=== PATIENT | female | born 1995 | race Caucasian/White ===

== ENCOUNTER 2019-11-18 13:07 | Inpatient (IN) ==
[2019-11-18] MEDS ORDERED: INFLUENZA ADMINISTRATION CHARGE ONE (13:55)
[2019-11-18] MEDS ORDERED: INFLUENZA VIRUS QUAD VACCINE 0.5 ML SYR IM ONE (13:55)
[2019-11-18] MEDS ORDERED: OXYTOCIN 30 UNITS/500 ML BAG IV PRN ×2 (14:19→18:36)
[2019-11-18] MEDS: LACTATED RINGER'S 1,000 ML IV PRN ×3 (14:20→20:31)
[2019-11-18 14:43] LABS: Hematocrit (blood only) 37.1 % (37-47); Hemoglobin 12.6 g/dL (12.0-16.0); Mean Corpuscular Hemoglobin 29.2 pg (25-34); Mean Corpuscular Volume 85.9 fL (80-100); Mean Platelet Volume 10.6 fL (7.4-10.4); Platelet Count 233 K/uL (130-400); RDW Coefficient of Variation 13.9 % (11.5-14.5); RDW Standard Deviation 43.2 fL (36.4-46.3); Red Blood Count 4.32 M/uL (4.2-5.4); White Blood Count 15.39 K/uL (4.8-10.8)
[2019-11-18] MEDS ORDERED: BUPIVACAINE 0.25% 30 ML VIAL ONE (15:00)
[2019-11-18] MEDS ORDERED: ePHEDrine sulfate 50 MG/ML AMP ONE (15:00)
[2019-11-18] MEDS ORDERED: fentaNYL citrate 100 MCG/2 ML VIAL ONE (15:01)
[2019-11-18] MEDS ORDERED: fentaNYL 2MCG/ML ROPIV 1.25MG/ML 100 ML BAG EPI ONE (15:01)
--- NOTE | 2019-11-18 15:01 | History & Physical Report ---
Date of Service November 18, 2019 Assessment & Plan (1) Encounter for induction of labor: Martha García is a 24 year old at 40+3wga with velamentous cord insertion who presents to L&D for elective IOL. -induction with pitocin -LR 125mL/hr IV q8h prn -AROM when indicated -close clinical and monitoring given velamentous cord insertion -anticipate History of Present Illness Primary Care Provider: Kevin Stanton Martha García is a 24 year old at 40+3wga with velamentous cord insertion who presents to L&D for elective IOL. She was seen in the office today for a routine check-up and was found to be 4cm dilated and 100% effaced. On her way home, she began to have increasingly frequent contractions and called the office, and was instructed to come to L&D. Here, she was found to have a category II FHT with variable decelerations, and the decision was made to induce labor today instead of tomorrow. Martha reports abdominal pain and cramping with contractions, and no pain or symptoms between contractions. She denies fever, chills, headache, SOB, cough, wheezing, chest pain, palpitations, dysuria, or loss of fluid. She does note some spotting yesterday after her cervix was checked in office. She has had growth scans q4 weeks starting at 28 weeks and NST's at 36 weeks for her velamentous cord insertion. Labs: A pos/antibody neg/rubella immune/hep b neg/hiv neg/GC neg/RPR NR/2 hour gtt 85/GBS neg/COVID neg (11/12/2019) Allergies Allergy/AdvReac Type Severity Reaction Status Date / Time Sulfa (Sulfonamide Allergy hives Verified 11/18/19 09:04 Antibiotics) Home Medications Home Medications Medication Instructions Recorded Confirmed Type prenat.vits,anne,qel-gkpn-syffw 1 tab PO DAILY 11/11/19 11/18/19 History [ Vitamin] Past Med/Surg History Medical History Encounter for anatomic survey Hx of migraines Prior miscarriage with , antepartum Supervision of with history of infertility Varicella vaccination Family History Father Brain tumor Social History Smoking Status: Never smoker Hx Alcohol Use: No Hx Substance Use: No Preferred Language: Hungarian Communication Ability: Effective 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 Beliefs That Will Affect Care: None marital status: marital status details: Jonathan García (37) [phone] Current Living Situation: Spouse Current Living Situation Comment: lives with spouse, dog, cat-spouse changing litter current occupational status: employed 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 Feels Safe at Home: Yes Safety Concerns: Feels Safe At This Time Review of Systems Constitutional: no fever and no chills Respiratory: no cough and no dyspnea Cardiovascular: no chest pain, no palpitations and no edema Gastrointestinal: no nausea, no vomiting and no constipation Genitourinary: no dysuria Musculoskeletal: denies calf pain Neurologic: no tingling and no numbness Physical Exam Constitutional: well nourished; no acute distress and not ill appearing Respiratory: normal respiratory effort, lungs clear to auscultation Cardiovascular: RRR, no murmur, no edema Gastrointestinal (Abdomen): normal gravid abdomen, soft, nontender to palpation, bowel sounds present in all four quadrants, Musculoskeletal: no calf tenderness bilaterally, negative Gunner's sign bilaterally Genitourinary: Manual OB Exam: + cervical dilation 5 cm, + cervical effacement 100% and + station 0 OB Exam Monitor Tracing: + external FHT monitor used, + external uterine monitor used, + category II, + normal FHT variability and + variable decelerations isolated FHT: category II 2/2 variable decelerations prior to maternal repositioning Cowan: q2-4min Results & Data Results & Data ([facility]) Vital Signs (Past 12 Hours) Vital Signs Temp Pulse Resp BP 11/18/19 14:34 18 11/18/19 14:00 37.0 C 18 11/18/19 13:30 37 C 93 H 18 110/68 11/18/19 13:25 93 H 110/68 Supervising Physician Co-Signing Physician Notes Resident Physician Supervision Note: I interviewed and examined the patient. Discussed with Dr. Mercado and agree with findings and plan as documented in the note. Any exceptions or clarifications are listed here: [None] Documented By: Aury Baer MD, FACOG Resident Activity Tracking Resident Involvement: Resident Care Provided Care Provided: OB Delivery
[2019-11-18] MEDS ORDERED: fentaNYL 2MCG/ML ROPIV 1.25MG/ML 100 ML BAG EPI PRN (15:56)
[2019-11-18] MEDS ORDERED: NALOXONE HCL 1 MG in SODIUM CHLORIDE 0.9% 1000ML 1,000 ML IV PRN (15:56)
[2019-11-18] MEDS ORDERED: ONDANSETRON INJ 2 MG/ML 2 ML VIAL IV PRN (15:56)
[2019-11-18] MEDS ORDERED: NALOXONE HCL 0.4 MG/1 ML VIAL/CARP IV PRN (15:56)
[2019-11-18] MEDS ORDERED: DiphenhydrAMINE HCL 50 MG/ML VIAL IV PRN (15:56)
[2019-11-18] MEDS ORDERED: ePHEDrine sulfate 50 MG/ML AMP IV PRN (15:56)
[2019-11-18] MEDS ORDERED: PROMETHAZINE HCL 25 MG in SODIUM CHLORIDE 0.9% 50 ML IV PRN (15:56)
--- NOTE | 2019-11-18 15:56 | Anesthesiology Consultation ---
Date of Service November 18, 2019 Assessment & Plan ASA ASA3 Proposed Anesthesia Anesthesia Type: Labor Epidural Risk / Benefits Reviewed With: PT / POA / Parent / Guardian, Accepts Plan and Informed Consent Obtained History Height/Weight Height: 5 ft 2 in Weight: 70.307 kg Allergies Allergy/AdvReac Type Severity Reaction Status Date / Time Sulfa (Sulfonamide Allergy hives Verified 11/18/19 09:04 Antibiotics) Medications Home Medications Medication Instructions Recorded Confirmed Last Taken prenat.vits,anne,aet-lfqz-wztaj 1 tab PO DAILY 11/11/19 11/18/19 11/10/19 21:00 [ Vitamin] Active Medications Generic Name Dose Route Start Last Admin Trade Name Freq PRN Reason Stop Dose Admin Lactated Ringer's 1,000 mls @ 125 mls/hr 11/18/19 14:19 11/18/19 15:56 Lr IV 11/20/19 14:18 999 mls/hr .Q8H PRN Administration L&D Protocol Protocol Past Medical History Medical History Encounter for anatomic survey Hx of migraines Prior miscarriage with , antepartum Supervision of with history of infertility Varicella vaccination Exercise / Class Metabolic Activity II 4-5 Yardwork/Stairs/Walk up hill Past Family History Family History Father Brain tumor Past Anesthesia History No Hx of Anesthesia Complications and No Family Hx of Anesthesia Complications History of PONV No Hx of PONV and No Hx of Motion Sickness Social History Smoking Status: Never smoker Hx Alcohol Use: No Hx Substance Use: No Review of Systems denies fever/cough/ colds/ chest pain/ SOB/ RON Constitutional: no fever and no chills Respiratory: no cough and no dyspnea denies RON Cardiovascular: no chest pain and no dyspnea on exertion Physical Exam Vital Signs Last Vital Signs Temp 37.0 C 11/18/19 14:00 Pulse 106 H 11/18/19 15:55 Resp 18 11/18/19 14:53 BP 123/71 11/18/19 15:55 Pulse Ox 100 11/18/19 15:51 ENMT Mouth: no TMJ abnormality and no dentition abnormality Thyromental Distance: > or= 3.5 Finger Breadths Mallampati Class: II Neck neck extension not limited Respiratory normal respiratory effort; no respiratory distress Auscultation: lungs clear to auscultation bilaterally Cardiovascular Rate/Rhythm: regular rate and regular rhythm Neurologic moves all extremities Psychiatric Orientation: alert and oriented x 3 Testing Laboratory Results 11/18/19 14:33
--- NOTE | 2019-11-18 18:36 | Obstetrical Progress Note ---
Date of Service November 18, 2019 Assessment & Plan Admission and Anticipated Discharge Date Admission Date: November 18, 2019 Subjective several variable decels now strip is category 1 with rare mild variables. epidural effective cervix exam- 6/100/0- AROM clear fluid may need pitocin augmentation if contraction pattern doesn't improve Results & Data ([facility]) Vital Signs (Past 12 Hours) Vital Signs Temp Pulse Resp BP Pulse Ox Pulse Ox 11/18/19 18:26 116 H 100 11/18/19 18:21 85 100 11/18/19 18:17 85 104/66 11/18/19 18:16 91 H 100 11/18/19 18:11 87 100 11/18/19 18:06 87 100 11/18/19 18:01 84 100 11/18/19 18:00 18 11/18/19 17:58 95 H 98/54 L 11/18/19 17:56 97 H 100 11/18/19 17:51 92 H 100 11/18/19 17:46 81 100 11/18/19 17:41 84 100 11/18/19 17:37 77 100/55 L 11/18/19 17:36 88 100 11/18/19 17:31 78 100 11/18/19 17:27 95 H 94 11/18/19 17:26 77 100 11/18/19 17:21 72 98 11/18/19 17:17 98 H 100/70 11/18/19 17:16 88 100 11/18/19 17:11 90 100 11/18/19 17:06 78 100 11/18/19 17:03 89 91 11/18/19 17:01 79 100 11/18/19 16:58 102 H 100/63 11/18/19 16:56 97 H 98 11/18/19 16:54 103 H 93 11/18/19 16:51 81 100 11/18/19 16:46 111 H 100 11/18/19 16:41 100 H 99 11/18/19 16:37 100 H 110/78 11/18/19 16:36 98 H 100 11/18/19 16:34 100 H 134/81 11/18/19 16:31 104 H 135/68 100 11/18/19 16:30 18 11/18/19 16:28 95 H 91/66 L 11/18/19 16:26 83 100 11/18/19 16:25 127 H 102/62 11/18/19 16:22 125 H 115/74 11/18/19 16:21 131 H 100 11/18/19 16:19 110 H 113/72 11/18/19 16:16 79 109/72 97 11/18/19 16:13 97 H 104/59 L 11/18/19 16:11 111 H 100 11/18/19 16:10 108 H 123/70 11/18/19 16:08 100 11/18/19 16:07 103 H 119/71 11/18/19 16:06 112 H 100 11/18/19 16:04 111 H 118/73 11/18/19 16:01 108 H 113/74 100 11/18/19 16:00 98.6 F 18 11/18/19 15:58 104 H 130/73 11/18/19 15:56 102 H 100 11/18/19 15:55 106 H 123/71 11/18/19 15:52 97 H 120/71 11/18/19 15:51 103 H 100 11/18/19 15:49 97 H 136/77 11/18/19 15:46 87 123/75 100 11/18/19 15:45 108 H 93 11/18/19 15:43 99 H 127/78 11/18/19 15:41 95 H 100 11/18/19 15:40 108 H 123/82 11/18/19 15:37 114 H 129/80 11/18/19 15:36 107 H 99 11/18/19 15:17 102 H 106/79 11/18/19 14:53 18 11/18/19 14:34 18 11/18/19 14:00 98.6 F 18 11/18/19 13:30 98.6 F 93 H 18 110/68 11/18/19 13:25 93 H 110/68 PG Care Time/CCT Total # of Minutes Spent Total Time Spent with Patient: Total time spent is greater than 50% in coordination of care (as documented) at patient's floor/unit and/or counseling patient: Coding Level of Care Code None
[2019-11-19] MEDS ORDERED: BENZOCAINE 20% AER SPR 82.5 GM CAN EXT PRN (02:36)
[2019-11-19] MEDS ORDERED: SUPERCREAM 0.870% 15 GM JAR EXT PRN (02:36)
[2019-11-19] MEDS ORDERED: bisacodyL 10 MG SUPP PR PRN (02:36)
[2019-11-19] MEDS ORDERED: IBUPROFEN 600 MG TAB PO PRN (02:36)
[2019-11-19] MEDS ORDERED: DIPHTHERIA/TETANUS/PERTUSSIS 0.5 ML SYR/VIAL IM ONE (02:36)
[2019-11-19] MEDS ORDERED: HYDROCORTISONE ACETATE 25 MG SUPP PR PRN (02:36)
[2019-11-19] MEDS ORDERED: OXYTOCIN 30 UNITS/500 ML BAG IV PRN (02:36)
[2019-11-19] MEDS ORDERED: ACETAMINOPHEN 325 MG TAB PO PRN (02:36)
[2019-11-19] MEDS ORDERED: OXYCODONE/ACETAMINOPHEN 5mg/325mg TAB PO PRN (02:36)
--- NOTE | 2019-11-19 02:48 | Delivery Summary ---
Vaginal Delivery Summary Date of Service November 19, 2019
--- NOTE | 2019-11-19 06:04 | Delivery Summary ---
DATE OF OPERATION: 11/19/2019 The patient is a 24-year-old G3, P0-0-2-0 white female who presented at 40+ weeks because of regular contractions. She was 5 cm and 100% effaced upon arrival in labor and delivery. She did have several prolonged variables. Contractions were approximately 8 cm apart. She does have a velamentous cord insertion as well complicating the . The patient received effective epidural analgesia. Membranes were ruptured for clear fluid. She required Pitocin augmentation of her labor at 7 cm. She then quickly went to full dilation. She pushed effectively over intact perineum for delivery of a viable male . There was a nuchal cord present. While trying to reduce the cord, the cord was inadvertently divided. The infant was then delivered immediately and the avulsed part of the cord was clamped with a Karime clamp. The infant was vigorous and moving all 4 limbs. The umbilical cord was noted to have no Cameron's jelly. After cord blood was obtained, the placenta was expressed intact with gentle traction on the cord. It was noted to have a velamentous insertion. A first-degree vaginal laceration and bilateral superficial labial lacerations were repaired with 3-0 chromic in the usual fashion. Estimated blood loss was 350 mL. bleeding was controlled with dilute Pitocin. Mother and were doing well after delivery. I attest to the content of the Intraoperative Record and any orders documented therein. Any exceptions are noted below. MTDD
--- NOTE | 2019-11-19 08:49 | Anesthesia Procedure Note ---
Date of Service November 19, 2019 Anesthesia Post Epidural Note Vital Signs Vital Signs: Temp Pulse Resp BP Pulse Ox 36.8 C 103 H 18 121/74 98 11/19/19 05:00 11/19/19 05:00 11/19/19 05:00 11/19/19 05:00 11/19/19 02:12 Pain Intensity Lower Abdomen: Pain Intensity: 0 Notes Mental Status: alert / awake / arousable and participated in evaluation Nausea / Vomiting: adequately controlled Pain: adequately controlled Airway Patency, RR, SpO2: stable & adequate BP & HR: stable & adequate Hydration State: stable & adequate Neuraxial Anesthesia: was administered and sensory block is resolving Anesthetic Complications: no major complications apparent and Pt Satisfied with anesthetic care Epidural: Removed without complications and With tip intact
[2019-11-19] MEDS: DOCUSATE SODIUM 100 MG CAP PO SCH ×2 (09:03→20:08)
[2019-11-19] MEDS: PRENATAL VITAMIN 1 TAB PO SCH (09:03)
[2019-11-20 06:14] LABS: Hematocrit (blood only) 32.2 % (37-47); Hemoglobin 10.9 g/dL (12.0-16.0); Mean Corpuscular Hemoglobin 29.5 pg (25-34); Mean Corpuscular Hgb Conc 33.9 g/dL (32-36); Mean Platelet Volume 10.7 fL (7.4-10.4); Platelet Count 192 K/uL (130-400); RDW Standard Deviation 44.4 fL (36.4-46.3); White Blood Count 15.25 K/uL (4.8-10.8)
--- NOTE | 2019-11-20 07:02 | Obstetrical Progress Note ---
Date of Service November 20, 2019 Assessment & Plan (1) Encounter for induction of labor: Recovering well after spontaneous labor and delivering occuring the night before planned induction was to occur. Will stay today, needing help with latch / . Subjective Ambulation: ambulating normally Voiding: no voiding problems Passing Gas:: Yes Diet Tolerance:: regular diet Lochia:: Small Physical Exam Constitutional WD/WN, vitals as above Eyes PERRL, conjunctivae normal, anicteric sclerae Neck normal visual inspection Respiratory normal respiratory effort and able to speak in complete sentences; no respiratory distress and no labored breathing Cardiovascular Rate/Rhythm: regular rate and regular rhythm Extremities: no edema Chest (Breasts) Chest: normal inspection of chest Gastrointestinal (Abdomen) Inspection/Auscultation: abdomen normal to inspection Soft, postgravid Psychiatric A+Ox3, euthymic affect Genitourinary OB Exam Abdomen: + fundal height Fundus: + firm and + relation to umbilicus (fundus just below umbilicus); not tender Results & Data ([facility]) Vital Signs (Past 12 Hours) Vital Signs Temp Pulse Resp BP 11/20/19 04:50 98.1 F 80 18 109/75 11/19/19 23:00 97.7 F 79 18 99/63 L 11/19/19 20:10 98.1 F 79 18 115/76
[2019-11-20] MEDS: PRENATAL VITAMIN 1 TAB PO SCH (09:19)
[2019-11-20] MEDS: DOCUSATE SODIUM 100 MG CAP PO SCH ×2 (09:19→20:50)
[2019-11-20] MEDS ORDERED: bisacodyL 5 MG TABEC PO SCH (20:00)
[2019-11-21 05:52] LABS: Hematocrit (blood only) 33.2 % (37-47); Hemoglobin 11.3 g/dL (12.0-16.0)
--- NOTE | 2019-11-21 06:59 | Obstetrical Progress Note ---
Date of Service November 21, 2019 Assessment & Plan (1) Encounter for care and examination after delivery: Post day 2 from [facility]. Doing well. Stable for discharge Subjective Ambulation: ambulating normally Voiding: no voiding problems Passing Gas:: Yes Diet Tolerance:: regular diet Lochia:: Moderate Physical Exam Constitutional WD/WN, vitals as above Respiratory normal respiratory effort; no respiratory distress and no labored breathing Gastrointestinal (Abdomen) Inspection/Auscultation: abdomen normal to inspection; abdomen not distended Percussion/Palpation: abdomen soft; abdomen nontender, no guarding and abdomen not rigid Genitourinary OB Exam Abdomen: + fundal height Fundus: + firm and + relation to umbilicus (Below); not tender and not boggy Results & Data ([facility]) Vital Signs (Past 12 Hours) Vital Signs Temp Pulse Resp BP Pulse Ox 11/20/19 23:30 36.3 C L 72 16 117/77 97 11/20/19 19:50 37.5 C 102 H 20 128/79 100
[2019-11-21] MEDS: PRENATAL VITAMIN 1 TAB PO SCH (08:08)
[2019-11-21] MEDS: DOCUSATE SODIUM 100 MG CAP PO SCH (08:08)
== END 2019-11-21 11:23 | disposition home or self-care (01) | DRG 807 ==
LOC: 4S1 13:07 → OPB 13:18 → 4S1 14:19 → 4S2 11-19 05:39

== ENCOUNTER 2021-03-28 05:42 | Inpatient (IN) ==
--- NOTE | 2021-03-28 08:25 | History & Physical Report ---
Date of Service March 28, 2021 Assessment & Plan (1) Encounter for induction of labor: Plan: 25 year old at 39 weeks coming in for induction of labor -Vital signs reviewed and within normal limits. -Started on LR and Pitocin. -Epidural if patient requests. -Continue to monitor vital signs, heart monitor, contractions. History of Present Illness Primary Care Provider: Kevin Stanton 25 year old 39 weeks confirmed via LMP. Here for possible induction. No complications with this . Patient attended OB appointments regularly. Patient taking vitamin at home. Contractions: q3min when walking around although do not last long. Fluid or blood: no fluid, mild blood tinge this morning. Movement: Present. Allergies Allergy/AdvReac Type Severity Reaction Status Date / Time Sulfa (Sulfonamide Allergy hives Verified 03/23/21 16:31 Antibiotics) Home Medications Medication Instructions Recorded Confirmed Type prenat.vits,anne,mzw-pycc-iezct 1 tab PO DAILY 11/11/19 03/28/21 History Patient History Medical History Encounter for anatomic survey Encounter for care and examination after delivery Hx of migraines Prior miscarriage with , antepartum Supervision of with history of infertility Varicella vaccination Velamentous insertion of umbilical cord, antepartum Surgical History History of repair of ACL Family History Father Brain tumor Denies family history of Ovarian cancer Prostate cancer Breast cancer Colorectal cancer Social History (Updated 08/18/20 @ 08:57 by Bhavana Ramirez RN) Smoking Status: Never smoker Second Hand Exposure: No; Hx Alcohol Use: No Hx Substance Use: No Preferred Language: Kazakh Communication Ability: Effective Visual Impairment: No Limitations Hearing Ability: Normal 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 Spontaneous 06/2018, elective 08/2018. Review of Systems Denies fever, chills, sweats Denies shortness of breath, difficulty breathing, chest pain, palpitations, chest pressure. Denies breast pain. Denies dysuria. Denies headache or changes in vision Physical Exam Physical Exam: General: Alert, oriented. No acute distress. Cardiac: Regular rate and rhythm, no murmurs/rubs/gallops. Respiratory: Clear to auscultation bilaterally a/p, no wheezes/rales/rhonchi. No increased work of breathing. Symmetrical chest rise. No respiratory distress. Pelvic: Dilation 1.0cm; Effacement 75; Station -[address] Casarez Lower Extremities: No lower extremity edema or swelling. No deep calf pain. H jean claude's negative bilaterally Baseline: 130 Variability: Moderate Accelerations:Present Decelerations: Not present Results & Data ([facility]) Vital Signs (Past 12 Hours) Vital Signs Temp Pulse Resp BP 03/28/21 06:57 86 100/67 03/28/21 06:56 36.8 C 18 03/28/21 06:07 36.7 C 18 03/28/21 05:58 92 H 114/68 Laboratory Results - Blood type A+ - Antibody screen: negative - Hgb: 12.0 - Hct: 36.3 - Wbc: 14.90 - Plt: 251 - Rubella Immune - VDRL/RPR: Non-reactive - Gonorrhea: Not reactive - Chlamydia: Not reactive - HIV: Negative - HbSAg: Negative - GBS: Negative - Glucose tolerance x 2: 120, 120 Supervising Physician Co-Signing Physician Notes Patient seen and evaluated and agree with the noted findings and plan Resident Activity Tracking Resident Involvement: Resident Care Provided Care Provided: OB Delivery
[2021-03-28] MEDS ORDERED: OXYTOCIN 30 UNITS/500 ML BAG IV PRN ×2 (08:39→17:27)
[2021-03-28] MEDS: LACTATED RINGER'S 1,000 ML IV PRN ×2 (08:59→10:29)
[2021-03-28 09:09] LABS: Hematocrit (blood only) 36.3 % (37-47); Mean Corpuscular Hemoglobin 28.1 pg (25-34); Mean Corpuscular Hgb Conc 33.1 g/dL (32-36); Platelet Count 251 K/uL (130-400); RDW Coefficient of Variation 14.4 % (11.5-14.5); RDW Standard Deviation 44.7 fL (36.4-46.3); Red Blood Count 4.27 M/uL (4.2-5.4)
[2021-03-28] MEDS ORDERED: ePHEDrine sulfate 50 MG/ML AMP ONE (09:39)
[2021-03-28] MEDS ORDERED: SODIUM CHLORIDE 0.9% INJ 10 ML VIAL ONE (09:39)
[2021-03-28] MEDS ORDERED: BUPIVACAINE 0.25% 30 ML VIAL ONE (09:39)
[2021-03-28] MEDS ORDERED: fentaNYL 2MCG/ML ROPIVACAINE 1.25MG/ML 100 ML BAG EPI ONE (09:40)
[2021-03-28] MEDS ORDERED: fentaNYL citrate 100 MCG/2 ML VIAL ONE (09:40)
--- NOTE | 2021-03-28 10:42 | Anesthesiology Consultation ---
Date of Service March 28, 2021 Assessment & Plan (1) Encounter for pre-operative examination: Chart Review Chart Review: Acceptable Risk for Labor Epidural History Height/Weight Height: 5 ft 2 in Weight: 70.307 kg Allergies Allergy/AdvReac Type Severity Reaction Status Date / Time Sulfa (Sulfonamide Allergy hives Verified 03/23/21 16:31 Antibiotics) Medications Home Medications Medication Instructions Recorded Confirmed Last Taken prenat.vits,anne,dry-vaoz-mahyw 1 tab PO DAILY 11/11/19 03/28/21 11/18/19 07:00 Active Medications Generic Name Dose Route Start Last Admin Trade Name Freq PRN Reason Stop Dose Admin Lactated Ringer's 1,000 mls @ 125 mls/hr 03/28/21 08:39 03/28/21 10:29 Lr IV 03/30/21 08:38 125 mls/hr .Q8H PRN Administration L&D Protocol Protocol Past Medical History Medical History Encounter for anatomic survey Encounter for care and examination after delivery Hx of migraines Prior miscarriage with , antepartum Supervision of with history of infertility Varicella vaccination Velamentous insertion of umbilical cord, antepartum Past Family History Family History Father Brain tumor Denies family history of Ovarian cancer Prostate cancer Breast cancer Colorectal cancer Past Surgical History Surgical History History of repair of ACL Social History Smoking Status: Never smoker Hx Alcohol Use: No Hx Substance Use: No Physical Exam Vital Signs Last Vital Signs Temp 36.8 C 03/28/21 06:56 Pulse 86 03/28/21 10:38 Resp 18 03/28/21 06:56 BP 110/60 03/28/21 09:33 Pulse Ox 98 03/28/21 10:38 Testing Laboratory Results 03/28/21 08:46
[2021-03-28] MEDS ORDERED: NALOXONE HCL 0.4 MG/1 ML VIAL/CARP IV PRN (11:08)
[2021-03-28] MEDS ORDERED: fentaNYL 2MCG/ML ROPIVACAINE 1.25MG/ML 100 ML BAG EPI PRN (11:08)
[2021-03-28] MEDS ORDERED: NALOXONE HCL 1 MG in SODIUM CHLORIDE 0.9% 1000ML 1,000 ML IV PRN (11:08)
[2021-03-28] MEDS ORDERED: ONDANSETRON INJ 2 MG/ML 2 ML VIAL IV PRN (11:08)
[2021-03-28] MEDS ORDERED: ePHEDrine sulfate 50 MG/ML AMP IV PRN (11:08)
--- NOTE | 2021-03-28 11:55 | Labor Progress Brief Note ---
Date of Service March 28, 2021 Subjective comfortable w/ epidural Assessment & Plan (1) : Plan: 25 y/o at 39 wga in labor VSS Fetus cat 1 Labor - now s/p arom, continue expectant management GBS neg epidural Weeks of gestation: 11 weeks Qualified Code(s): Z3A.11 - 11 weeks gestation of Admission and Anticipated Discharge Date Admission Date: March 28, 2021 Physical Exam Genitourinary: Manual OB Exam: + cervical dilation 4 cm, + cervical effacement 70%, + station -2 and + amniotic fluid (arom clear) OB Exam Monitor Tracing: + external FHT monitor used, + external uterine monitor used (q3-6) and + category I (130/mod/+accel/-decel) Results & Data ([facility]) Vital Signs (Past 12 Hours) Vital Signs Temp Pulse Resp BP Pulse Ox 03/28/21 11:49 90 117/65 03/28/21 11:48 94 H 98 03/28/21 11:45 18 03/28/21 11:44 92 H 131/73 03/28/21 11:43 95 H 99 03/28/21 11:39 96 H 120/92 03/28/21 11:38 93 H 98 03/28/21 11:34 92 H 132/66 03/28/21 11:33 96 H 99 03/28/21 11:30 97 H 20 105/70 03/28/21 11:28 94 H 98 03/28/21 11:24 96 H 105/65 03/28/21 11:23 96 H 99 03/28/21 11:19 93 H 105/58 L 03/28/21 11:18 91 H 98 03/28/21 11:15 113 H 18 115/60 03/28/21 11:13 94 H 98 03/28/21 11:11 93 H 107/63 03/28/21 11:10 18 03/28/21 11:09 98.2 F 96 H 105/62 03/28/21 11:08 96 H 97 03/28/21 11:07 96 H 104/67 03/28/21 11:05 88 108/66 03/28/21 11:03 91 H 107/68 97 03/28/21 10:58 104 H 98 03/28/21 10:53 109 H 98 03/28/21 10:48 108 H 98 03/28/21 10:43 86 100 03/28/21 10:38 86 98 03/28/21 10:33 92 H 98 03/28/21 10:28 98 H 98 03/28/21 10:23 98 H 99 03/28/21 10:18 95 H 99 03/28/21 10:13 106 H 99 03/28/21 10:07 96 H 100 03/28/21 10:02 97 H 100 03/28/21 09:57 91 H 100 03/28/21 09:52 89 99 03/28/21 09:47 95 H 98 03/28/21 09:42 88 98 03/28/21 09:33 93 H 110/60 03/28/21 06:57 86 100/67 03/28/21 06:56 98.2 F 03/28/21 06:07 98.1 F 03/28/21 05:58 92 H 114/68 Coding Level of Care Code None Diagnoses Z3A.11 Weeks of gestation: 11 weeks
--- NOTE | 2021-03-28 17:12 | Delivery Summary ---
Vaginal Delivery Summary Date of Service March 28, 2021 Vaginal Delivery Summary [facility] PREOPERATIVE DIAGNOSIS: 1. Single intrauterine at 39 weeks gestation 2. Labor POSTOPERATIVE DIAGNOSIS: 1. Single intrauterine at 39 weeks gestation 2. Labor 3. Delivered PROCEDURE: 1. Normal spontaneous vaginal delivery. SURGEON: Cristin He MD ANESTHESIA: Epidural. ESTIMATED BLOOD LOSS: 300 mL FLUIDS: Continuous LR. URINE OUTPUT: None. COMPLICATIONS: None. CONDITION: Stable. INDICATIONS: 25 y/o at 39 wga presented with complaints of contractions increasing in frequency and intensity. She was initially 1cm and then found to be 4cm after a few hours. She received an epidural for pain control and underwent artificial rupture of membranes. She continued to progress spontaneously to complete and desired to push. FINDINGS: A viable male infant, weight pending with Apgars of 8 and 9 at 1 and 5 minutes respectively. SPECIMEN: Cord blood OPERATIVE REPORT: The patient progressed to 10 cm, 100% effaced and +2 station, pushed over intact perineum with anesthesia to deliver a viable male infant, weight and Apgars as above. Head of delivered in POONAM position. No nuchal cord was present. Body and shoulders were delivered without difficulty. was delivered to maternal abdomen and nursing staff. Delayed cord clamping was performed for 60 seconds. Cord was clamped and cut. Cord blood was obtained. Placenta delivered spontaneously intact with 3-vessel cord. IV oxytocin and fundal massage were given for excellent hemostasis. Vagina, cervix, perineum, and placenta were inspected. Hemostatic bilateral labial lacerations were noted and not needed to be repaired. Sponge and needle counts correct x2. No sponges were left behind. Mother and stable in immediate period. [facility] [place] Vaginal Delivery Charge Vaginal Delivery Codes: 96396 global code for the antepartum, delivery, and post- Delivery Type Details: [facility]
[2021-03-28] MEDS ORDERED: HYDROCORTISONE ACETATE 25 MG SUPP PR PRN (17:27)
[2021-03-28] MEDS ORDERED: BENZOCAINE 20% AER SPR 82.5 GM CAN EXT PRN (17:27)
[2021-03-28] MEDS ORDERED: DIPHTHERIA/TETANUS/PERTUSSIS 0.5 ML SYR/VIAL IM ONE (17:27)
[2021-03-28] MEDS ORDERED: IBUPROFEN 600 MG TAB PO PRN (17:27)
[2021-03-28] MEDS ORDERED: SUPERCREAM 0.870% 15 GM JAR EXT PRN (17:27)
[2021-03-28] MEDS ORDERED: bisacodyL 10 MG SUPP PR PRN (17:27)
[2021-03-28] MEDS ORDERED: ACETAMINOPHEN 325 MG TAB PO PRN (17:27)
--- NOTE | 2021-03-28 19:39 | Anesthesia Procedure Note ---
Date of Service March 28, 2021 Anesthesia Post Epidural Note Vital Signs Vital Signs: Temp Pulse Resp BP Pulse Ox 37.2 C 108 H 20 107/64 90 03/28/21 18:37 03/28/21 19:22 03/28/21 18:37 03/28/21 19:22 03/28/21 16:53 Notes Mental Status: alert / awake / arousable and participated in evaluation Nausea / Vomiting: adequately controlled Pain: adequately controlled Airway Patency, RR, SpO2: stable & adequate BP & HR: stable & adequate Hydration State: stable & adequate Neuraxial Anesthesia: was administered and sensory block is resolving Anesthetic Complications: no major complications apparent Epidural: Removed without complications and With tip intact
[2021-03-28] MEDS: DOCUSATE SODIUM 100 MG CAP PO SCH (20:51)
--- NOTE | 2021-03-29 05:50 | Obstetrical Progress Note ---
Date of Service <Parveen Banks DO - Last Filed: 03/29/21 07:07> March 29, 2021 Assessment & Plan <Parveen Banks DO - Last Filed: 03/29/21 07:07> (1) Encounter for care and examination after delivery: 25 yo post day 1 from vaginal delivery, doing well. -Continue routine post care. - vital signs reviewed and WNL. (Tmax 37.5) -Blood type A+, GBS -, Rubella Immune -Encourage ambulation, monitor and control pain with Motrin, tylenol PRN, resume regular diet, monitor lochia. -encourage breast feeding. Breast pump [needed/already has]. -hemoglobin 11.5 -Discussed discharge with patient. Plan for D/C later today. Patient will follow up with Dr. He in 6 weeks. <Cristin He MD - Last Filed: 03/29/21 08:20> (1) Encounter for care and examination after delivery: Subjective <Parveen Banks DO - Last Filed: 03/29/21 07:07> Ambulation: ambulating normally Voiding: no voiding problems Passing Gas:: Yes Diet Tolerance:: regular diet Lochia:: Small Feeding Type:: breast feeding Current Pain Level(1-10): 0 Review of Systems Denies fever, chills, sweats Denies shortness of breath, difficulty breathing, chest pain, palpitations, chest pressure. Denies breast pain. Denies dysuria. Denies headache or changes in vision Physical Exam <Parveen Banks DO - Last Filed: 03/29/21 07:07> General: Alert, oriented. No acute distress. Cardiac: Regular rate and rhythm, no murmurs/rubs/gallops. Respiratory: Clear to auscultation bilaterally a/p, no wheezes/rales/rhonchi. No increased work of breathing. Symmetrical chest rise. No respiratory distress. Abdomen: Soft, nontender, nondistended. Bowel sounds present. Uterus: Uterine fundus firm, palpable 2 cm below umbilicus. Lower Extremities: No lower extremity edema or swelling. No deep calf pain. Ugnner's negative bilaterally Results & Data ([facility]) <Parveen Banks DO - Last Filed: 03/29/21 07:07> Vital Signs (Past 12 Hours) Vital Signs Temp Pulse Pulse Resp BP BP 03/29/21 03:50 36.8 C 71 18 98/64 L 03/28/21 23:30 36.8 C 91 H 18 105/68 03/28/21 19:40 37 C 97 H 18 121/76 03/28/21 19:22 108 H 107/64 03/28/21 19:07 103 H 109/65 03/28/21 18:52 96 H 109/67 03/28/21 18:37 37.2 C 110 H 20 110/64 03/28/21 18:22 90 115/66 03/28/21 18:07 100 H 112/66 03/28/21 17:52 99 H 107/62 <Cristin He MD - Last Filed: 03/29/21 08:20> Co-Signing Physician Notes Resident Physician Supervision Note: I interviewed and examined the patient. Discussed with Dr. Banks and agree with findings and plan as documented in the note. Any exceptions or cla rifications are listed here: PP1 s/p , doing well. VSS, exam benign and wnl. Desires d/c home today, stable to do so Documented By: Cristin He MD Resident Activity Tracking <Parveen Banks DO - Last Filed: 03/29/21 07:07> Resident Involvement: Resident Care Provided Care Provided: OB Delivery
[2021-03-29 06:48] LABS: Hematocrit (blood only) 35.5 % (37-47); Hemoglobin 11.5 g/dL (12.0-16.0); Mean Corpuscular Hemoglobin 27.6 pg (25-34); Mean Corpuscular Hgb Conc 32.4 g/dL (32-36); Mean Corpuscular Volume 85.3 fL (80-100); Mean Platelet Volume 11.3 fL (7.4-10.4); Platelet Count 222 K/uL (130-400); RDW Coefficient of Variation 14.6 % (11.5-14.5); Red Blood Count 4.16 M/uL (4.2-5.4); White Blood Count 16.32 K/uL (4.8-10.8)
[2021-03-29] MEDS ORDERED: PRENATAL VITAMIN 1 TAB PO SCH (08:00)
[2021-03-29] MEDS: DOCUSATE SODIUM 100 MG CAP PO SCH (08:18)
[2021-03-29] MEDS ORDERED: bisacodyL 5 MG TABEC PO SCH (20:00)
== END 2021-03-29 18:49 | disposition home or self-care (01) | DRG 807 ==
LOC: OPB 05:42 → 4S1 05:44 → 4S2 19:40